=== PATIENT | female | born 1955 | race Caucasian/White ===

== ENCOUNTER → 2018-11-16 | Outpatient (CLI) | payer BC | LOC: COL.CARD 12:25 | DX: R40.4 Transient alteration of awareness (principal) ==

== ENCOUNTER → 2019-12-22 | Outpatient (CLI) | payer BC | LOC: COL.CAR | DX: Z20.828 Contact with and (suspected) exposure to other viral communicable diseases (principal); Z53.8 Procedure and treatment not carried out for other reasons ==

== ENCOUNTER 2020-03-06 07:43 | Outpatient (CLI) | payer MEDICARE ==
[~2020-03-06] VITALS: Ht 162.6 cm; Wt 90.0 kg
[2020-03-06] MEDS ORDERED: TOPROL XL 50MG50 MG PO (08:31)
[2020-03-06] MEDS ORDERED: ELIQUIS 5MG PO (08:31)
[2020-03-06] MEDS ORDERED: LIPITOR20 MG PO (08:33)
[2020-03-06] MEDS ORDERED: GLUCOPHAGE500 MG/TAB PO (08:33)
[2020-03-06] MEDS ORDERED: ULTRAM 50MG TAB50 MG PO (08:34)
[2020-03-06] MEDS ORDERED: HYZAAR 25 MG-101 TAB PO (08:34)
[2020-03-06] MEDS ORDERED: ALEVE PM PO (08:35)
[2020-03-06] MEDS ORDERED: TYLENOL 8 HR PO (08:35)
[2020-03-06] MEDS ORDERED: MULTIPLE VITAMI1 TA5 PO (08:36)
[2020-03-06 09:05] VITALS: BP 149/70; PULSE 70; TEMP 98.4
[2020-03-06] MEDS ORDERED: CEPHALEXIN500 M1 PO (09:37)
[2020-03-06 09:55] VITALS: BP 163/76; PULSE 87
--- NOTE | 2020-03-06 10:07 | NUR ---
Discharge instructions given to pt.Pt verbalizes understanding.Pt escorted out via ambulatory by this nurse.
== END 2020-03-06 10:07 | disposition home or self-care (01) ==
LOC: COL.CAR 07:43
DX: I48.0 Paroxysmal atrial fibrillation (principal); I10 Essential (primary) hypertension; E78.5 Hyperlipidemia, unspecified; E11.9 Type 2 diabetes mellitus without complications; Z86.718 Personal history of other venous thrombosis and embolism; Z96.659 Presence of unspecified artificial knee joint; I47.1 Supraventricular tachycardia

== ENCOUNTER → 2020-03-12 | Outpatient (CLI) | payer MEDICARE, OTHER ==
[~2020-03-12] MED LIST: ALEVE PM PO; CEPHALEXIN500 M1 PO; ELIQUIS 5MG PO; GLUCOPHAGE500 MG/TAB PO; HYZAAR 25 MG-101 TAB PO; LIPITOR20 MG PO; MULTIPLE VITAMI1 TA5 PO; TOPROL XL 50MG50 MG PO; TYLENOL 8 HR PO; ULTRAM 50MG TAB50 MG PO
== END ==
LOC: COL.RAD 10:16
DX: R31.21 Asymptomatic microscopic hematuria (principal)